=== PATIENT | male | born 1955 | race African-American/Black ===

== ENCOUNTER 2016-06-30 10:19 | Inpatient (IN) | payer BC ==
--- NOTE | ~2016-06-30 | OR ---
Unit #: [id number] #: [id number] Patient: NALLELY العلي [id number] [address] [place], [place] [address] [id number] I MR#: [id number] NAME: NALLELY العلي ROOM: 575 Date of Procedure: 07/02/2016 Admission Date: 06/30/2016 Surgeon: Isaias Masterson M.D. : 1955 Attending Physician: Nayeli Zelaya M.D. Primary Care Physician: Maggie Hernandes M.D. OPERATIVE REPORT PRIMARY CARE PHYSICIAN Maggie Hernandes M.D. PREOPERATIVE DIAGNOSES Upper gastrointestinal bleed. The patient has been presented with nausea, vomiting, and hematemesis along with diabetic ketoacidosis. PROCEDURES PERFORMED Upper gastrointestinal endoscopy. POSTOPERATIVE DIAGNOSES 1. Severe confluent ulcerative esophagitis involving almost the entire length of the esophagus along with stigmata of recent bleed. This was in the form of purplish bleb in the mid esophagus. Extensive ulceration clearly explain the patient's symptomatology of dysphagia and dyspepsia. 2. Rest of examination up to third part of duodenum was normal. RECOMMENDATIONS Pantoprazole 40 mg p.o. b.i.d. The patient must stay on b.i.d. dosing of PPI therapy on a lifelong basis. SEDATION USED MAC. DESCRIPTION OF PROCEDURE Following detailed explanation of potential risks and complications of an upper endoscopy, namely perforation, bleeding, and complications related to sedation, the patient was brought to GI lab and laid in the left lateral decubitus position. Lubricated tip of the Olympus video upper endoscope was passed through bite block into the proximal esophagus under direct vision. The entire esophageal mucosa was examined and appeared severely ulcerated with confluent ulceration extending from the mid to distal esophagus. In fact, there were satellite ulcers even in the proximal esophagus as far proximally as posterior pharynx. There was also purplish bleb in the mid esophagus indicating stigmata of recent bleed. The scope was then advanced into the gastric cavity and latter was insufflated. Mucosa of the fundus, body, and antrum was examined and appeared unremarkable. Pylorus was intubated with visualization of the normal duodenal bulb and second and third part of the duodenum. Upon withdrawal and retroflexion, incisura, cardia, and greater curve examined Unit #: [id number] #: [id number] Patient: NALLELY العلي and no additional findings noted. The scope was then withdrawn in the distal esophagus. The entire esophageal mucosa was examined all the way up to pharynx. No additional findings noted. The patient tolerated the procedure without any postprocedure complications. Dictated by... Julieta Valenzuela/tyrell TD: 07/03/2016 05:41 JOB #: [id number] OPERATIVE REPORT X Isaias Masterson MD X PROCEDURE OPERATIVE NOTE
--- NOTE | ~2016-06-30 | CO ---
Unit #: [id number] #: [id number] Patient: NALLELY العلي [id number] [id number] [facility]. [place], [place] [address] [id number] I MR#: [id number] NAME: NALLELY العلي ROOM: 575 Age: 61 Sex: M Admission Date: 06/30/2016 : 1955 Attending Physician: Nayeli Zelaya M.D. Primary Care Physician: Maggie Hernandes M.D. Consultation Date: 07/01/2016 CONSULTATION REPORT REASON FOR CONSULTATION Elevated troponin. HISTORY OF PRESENT ILLNESS The patient is a 51-year-old male who is known to Dr. Álvarez with a history of diabetes, hypertension, hyperlipidemia, questionable history of heart attack per patient. The patient presented to the [facility] emergency department on 06/30/2016 with complaints of weakness, nausea, vomiting, diarrhea times 2 weeks. The patient states that approximately two weeks ago he went to his primary care physician and got a flu shot as well as a couple of injections, one in the knee, and he has just not felt well since then. The patient states that he has had fevers, but did not check his temperature, nausea, vomiting, diarrhea, decreased appetite, weakness, chest pain, shortness of breath with exertion and at rest, as well as palpitations, but denies any kind of syncope. The patient states that he had a cardiac catheterization approximately two to three years ago, but he did not have to have any stents placed. He also states that he had a stress test two years ago, but was told it was normal. Last echo in 2011 showed impaired relaxation, normal systolic function with a mild concentric LVH. The patient presented to the emergency department with a blood pressure of 145/72, pulse 113, temperature 97.4, respiratory rate 23. The patient was given 2 liters of saline boluses as well as some morphine and Zofran. He was started on diabetic ketoacidosis protocol as his blood sugar was noted to be 674 on admission. PAST MEDICAL HISTORY 1. Diabetes. 2. Hypertension. 3. Hyperlipidemia. 4. Questionable myocardial infarction. PAST SURGICAL HISTORY 1. 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 2. Multiple foot surgeries. 3. Shoulder surgery. SOCIAL HISTORY The patient is a smoker of 1 pack per day times 20 years. No alcohol abuse. No other drug abuse. He states he is not very active as he is unable to walk very well with his foot. Unit #: [id number] #: [id number] Patient: NALLELY العلي FAMILY HISTORY Dad had a stent with myocardial infarction in his 50s. Mom lived to be in her 80s with no heart history. Sister has had sickle cell, but no coronary disease that he is aware of. ALLERGIES No known drug allergies. HOME MEDICATIONS 1. Crestor. 2. Lisinopril. 3. Lantus. 4. Multivitamins. 5. [place] 10/325 mg. There are no other doses listed and medication reconciliation is not completed at this time. REVIEW OF SYSTEMS See history of present illness. PHYSICAL EXAMINATION GENERAL: This is a 51-year-old male who is alert and oriented times three, in no apparent distress. VITALS: Blood pressure 158/80, temperature 97.6, pulse 97, respiratory rate 18. HEENT: Pupils are equal, round and reactive. Oral mucosa moist. NECK: No jugular venous distension. No thyromegaly. No lymphadenopathy. No carotid bruits. LUNGS: Clear. HEART: S1 and S2. No clicks, rubs or murmurs. ABDOMEN: Soft. Bowel sounds positive. Nontender and nondistended. EXTREMITIES: No swelling. DIAGNOSTIC STUDIES IMAGING: Chest x-ray was clear for any kind of pulmonary edema or pneumonia. LABORATORY: White blood cell count 17.1, hemoglobin 11.9, hematocrit 36.3, platelets 384, sodium 144, potassium 3.4, chloride 109, CO2 26, BUN 27, creatinine 1.6, glucose 132, magnesium 2.1, troponin less than 0.05 then 0.07 then 5.39. Urine was positive for glucose. (1) 4.4. Urine drug screen was negative. CARDIOVASCULAR: EKG showed sinus rhythm with PVCs. ASSESSMENT 1. Diabetic ketoacidosis. 2. Acute inferior wall myocardial infarction. 3. Questionable GI bleed with hemoglobin drop of 2 g after 2 liters normal saline bolus. 4. Hypertension. 5. Hyperlipidemia. 6. Diabetes. 7. Coronary artery disease that was nonobstructive per patient. No report is available. Unit #: [id number] #: [id number] Patient: NALLELY العلي PLAN Will trend troponin every 6 hours times 3 sets. Will check lipid panel, A1c and TSH on today's labs. Will obtain records from [facility] regarding cardiac catheterization, echo, stress test from Dr. Álvarez. Will obtain two-dimensional echo today to evaluate left ventricular function and valvular abnormalities. Will put hold parameters on metoprolol. Will start the patient on nitroglycerin paste q.[address] Nolasco with renal to see the patient for acute kidney injury. Clear the patient for heart catheterization. Will plan for a cardiac catheterization tomorrow as the patient has ruled in for myocardial infarction. The patient has been discussed with the plan of care and is agreeable to proceed. GI is seeing the patient for the drop in hemoglobin and the possible GI bleed and is planning for an EKG possibly tomorrow. At this time there is no indication to stop Lovenox or the aspirin. Will plan to continue until there is proof of bleeding issue. Dictated by... Torrie Gao APRN for Julieta Mendez TD: 07/02/2016 08:17 JOB #: [id number] CONSULTATION REPORT X X CONSULTATION REPORT
--- NOTE | ~2016-06-30 | CO ---
Unit #: [id number] #: [id number] Patient: NALLELY GONZALEZ [id number] [address] [address] [id number] I MR#: [id number] NAME: NALLELY GONZALEZ. ROOM: 575 Age: 61 Sex: M Admission Date: 06/30/2016 : 1955 Attending Physician: Nayeli Zelaya M.D. Primary Care Physician: Maggie Hernandes M.D. Consultation Date: 07/02/2016 CONSULTATION REPORT REASON FOR CONSULTATION Upper GI hemorrhage. HISTORY Mr. Gonzalez is a 61-year-old -[place] gentleman who was admitted with diabetic ketoacidosis. Upon admission, found to have diabetic ketoacidosis and acute HI. The patient has mentioned a history of abdominal pain for the past week in the upper abdomen, felt as a burning pain. He also has a history of terminologist acid reflux as well as dysphagia. Initially, he had vomited several times and subsequently had bright red blood and melena. In the emergency room, he was found to have diabetic ketoacidosis with a blood glucose of 660 and a bicarb of 12. His pH was 7.17. The patient was started on insulin infusion in the emergency room. Subsequently, his hemoglobin has dropped and patient complains of dysphagia and odynophagia. PAST MEDICAL HISTORY Significant history of: 1. Diabetes with peripheral neuropathy. 2. Hypertension. 3. Hyperlipidemia. 4. History of left ventricular hypertrophy. PAST SURGICAL HISTORY Previous surgeries included multiple foot surgeries including toe amputations for diabetic peripheral arterial disease. MEDICATIONS His medications at home include: 1. Crestor. 2. NovoLog. 3. Lisinopril. 4. Lantus insulin. 5. Multivitamins. 6. [place]. ALLERGIES He has no known drug allergies. FAMILY HISTORY Significant for diabetes. No family history of colon or pancreatic cancer or liver disease. SOCIAL HISTORY Unit #: [id number] #: [id number] Patient: NALLELY GONZALEZ Smokes half pack of cigarettes, does not drink alcohol. Currently unemployed. Lives at home with his . REVIEW OF SYSTEMS A detailed review of organ systems is significant for abdominal pain, nausea and vomiting as mentioned above as well as history of hematemesis and melena. There is no history of recent weight loss. No history of fevers, chills, rigors, diagnosis of headaches, seizures, chest pain or syncope. No history of cough, expectoration or hemoptysis. No history of dysuria, hematuria or pyuria. No history of focal seizures or extremity weakness. The rest of the review of organs systems is unremarkable. PHYSICAL EXAMINATION GENERAL APPEARANCE: He is awake, alert and oriented and appears comfortable. VITAL SIGNS: His vital signs are stable with a temperature of 97.9, pulse 95 per minute and regular, respiratory rate 18, blood pressure 124/82. He weighs 250 pounds and his BMI is 32. He has mild pallor, there being no icterus, lymphadenopathy or peripheral edema. CARDIOVASCULAR EXAMINATION: Normal heart sounds. No murmurs. LUNGS: Auscultation over the lungs reveal normal breath sounds. Good air entry. ABDOMEN: Soft, obese, nontender. Liver and spleen are not palpable. Bowel sounds normal. DIAGNOSTIC STUDIES LABORATORY: Lab evaluation shows a hemoglobin of 10.5. Baseline hemoglobin is around 13. His white count was 16,000 on admission and is now 9.7. Platelet count is normal. Serum chemistry shows a BUN and creatinine of 28 and 1.7. Blood glucose is 660 on admission with a CO2 of 12. These values are more or less normalized now. Albumin is 3.0. LFTs are normal. Amylase and lipase also normal. The patient's troponin is 5.91 and his (1) MB is 10 and is suspected that he has been having non-ST elevation HI and patient is due to go for heart catheterization later today. CLINICAL IMPRESSION 1. The patient does have significant heartburn and reflux symptoms along with odynophagia of quite some time. This could be due to Geno esophagitis, esophageal stricture from reflux and less likely from malignancy. In addition, patient had an upper GI bleed with anemia of acute GI blood loss. An upper endoscopy will be performed shortly in a few hours. 2. Diabetes, peripheral neuropathy, peripheral arterial disease and elevated troponin with possible acute non-ST elevation myocardial infarction: The patient clearly is a high risk because of confounding variables. However, the risk of endoscopy is primarily related to sedation and will be super careful with the latter. Thank you for asking me to see this pleasant gentleman. I appreciate the consult. Unit #: [id number] #: [id number] Patient: NALLELY GONZALEZ Dictated by... Julieta Valenzuela TD: 07/03/2016 13:14 JOB #: [id number] CONSULTATION REPORT X Isaias Masterson MD CONSULTATION REPORT
--- NOTE | ~2016-06-30 | CR72 ---
[facility] A Service of [facility] RADIOLOGY TEXT RESULTS PATIENT: NALLELY العلي LOCATION: [facility] [id number] : [birth year] UNIT #: [id number] AGE: [address]: aJcinta Hanna MD SEX: M ORDER DR: [id number] [facility] [address] [facility]. [place], [place] [address] [id number] E MR#: [id number] Acc #: [id number] NAME: NALLELY العلي : 1955 SEX: M STUDY DATE/TIME: 06/30/2016 12:25 UNIT: [facility] ROOM: STUDY DESCRIPTION: CR Chest Single View Portable Attending Physician: Giulia Westfall M.D. Ordering Physician: Giulia Westfall M.D. Primary Care Physician: Maggie Hernandes M.D. MEDICAL IMAGING REPORT This report is preliminary unless electronic signature is present EXAM Portable chest 06/30/2017 COMPARISON 04/07/2012 HISTORY SUPPLIED Diabetic ketoacidosis, weakness, nausea, vomiting, shortness of breath, and chest pain for 1 week. FINDINGS An AP portable view is obtained. The cardiovascular configuration is normal and the lungs are clear. CONCLUSION Negative portable chest. Dictated by... Mik Lopez M.D. THIS IS AN ELECTRONICALLY VERIFIED REPORT Mik Loepz M.D. at 06/30/2016 5:06 PM BASHIR/pau TD: 06/30/2016 14:51 JOB #: [id number] MEDICAL IMAGING REPORT COPY
--- NOTE | ~2016-06-30 | CT4 ---
[facility] A Service [facility] RADIOLOGY TEXT RESULTS PATIENT: NALLELY العلي LOCATION: [facility] : 53 UNIT #: [id number] AGE: [address]: Jacinta Hanna MD SEX: M ORDER DR: [id number] [address] [address] [id number] E MR#: [id number] Acc #: [id number] NAME: NALLELY العلي. : 1955 SEX: M STUDY DATE/TIME: 06/30/2016 11:52 UNIT: [facility] ROOM: STUDY DESCRIPTION: CT Abd and Pelv Wo Cont Attending Physician: Giulia Westfall M.D. Ordering Physician: Rob Dutton M.D. Primary Care Physician: Maggie Hernandes M.D. MEDICAL IMAGING REPORT This report is preliminary unless electronic signature is present EXAM CT abdomen and pelvis without contrast INDICATIONS Epigastric abdominal pain for the past week. PROCEDURE Noncontrast CT abdomen and pelvis. COMPARISON: None The CT exam was performed with one or more of the following radiation dose reduction techniques: automatic exposure control, adjustment of mA and/or kV according to patient size, and iterative reconstruction. FINDINGS Abdomen without contrast: There is mild clustered ground-glass micronodularity in the right lung base. Small hiatal hernia versus distal esophageal thickening. Liver, spleen, kidneys, adrenal glands, pancreas, gallbladder show no acute abnormality. The appendix is normal. Pelvis without contrast: No pelvic mass or fluid. No aggressive appearing bone lesion. IMPRESSION 1. Either a hiatal hernia or distal esophageal thickening not well characterized on this study. 2. Otherwise no acute findings are seen in the abdomen or pelvis. [facility] A Service [facility] RADIOLOGY TEXT RESULTS PATIENT: NALLELY العلي [facility] 53 UNIT #: [id number] AGE: [address]: Jacinta Hanna MD SEX: M ORDER DR: Dictated by... Saad Glover M.D. THIS IS AN ELECTRONICALLY VERIFIED REPORT Saad Glover M.D. at 06/30/2016 4:52 PM ELINOR/sarah TD: 06/30/2016 13:55 JOB #: [id number] MEDICAL IMAGING REPORT COPY
--- NOTE | ~2016-06-30 | DS ---
Unit #: [id number] #: [id number] Patient: NALLELY العلي [id number] [address] [address] [id number] I MR#: [id number] NAME: NALLELY العلي. ROOM: 575 Age: 61 Sex: M Admission Date: 06/30/2016 : 1955 Discharge Date: 07/03/2016 Attending Physician: Nayeli Zelaya M.D. Primary Care Physician: Maggie Hernandes M.D. DISCHARGE SUMMARY DIAGNOSIS ON ADMISSION Diabetic ketoacidosis. DIAGNOSES ON DISCHARGE 1. Diabetic ketoacidosis, resolved. 2. Acute inferior wall myocardial infarction. 3. Coronary artery disease. 4. Acute on chronic kidney disease, improved. 5. Hypertension. 6. Uncontrolled type 2 diabetes mellitus. 7. Tobacco abuse. 8. Hyperlipidemia. 9. Peripheral neuropathy. 10. Low gastrointestinal bleeding, secondary to severe ulcerative esophagitis. CONSULTATIONS 1. Dr. Isaias Masterson in GI consultation. 2. Dr. Ocampo in renal consultation. 3. Dr. Bernstein in endocrinology consultation. 4. Dr. Dumont and in cardiology consultation. PROCEDURE The patient had an EGD done which revealed severe ulcerative esophagitis involving almost the entire length of esophagus. DIAGNOSTIC STUDIES LABORATORY: Patient's creatinine is 1, sodium 137, potassium 3.8. AST and ALT are within normal limits. WBC is 8.6, hemoglobin 9.7, platelet count 206,000. Blood cultures did not reveal any growth so far. Hemoglobin A1c was 10.4. Influenza A and B screen was negative. Urine tox screen was negative. IMAGING: CT scan of abdomen and pelvis revealed either hiatal hernia or distal esophageal thickening, not well characterized on this study. HOSPITAL COURSE A 61-year-old male was admitted to [facility] with DKA. Details are as per admission H and P. Diabetic ketoacidosis: The patient was treated with IV insulin and was kept in ICU on DKA protocol. Patient responded well and diabetic ketoacidosis resolved. The patient's diabetes is uncontrolled secondary to noncompliance. He was seen by Dr. Bernstein in consultation. Unit #: [id number] #: [id number] Patient: NALLELY العلي Acute on chronic kidney disease: The patient was seen by Dr. Ocampo in consultation and his creatinine is better now. Acute inferior wall CT: The patient was seen by cardiology in consultation. Patient had a 2D echocardiogram done which revealed ejection fraction of 50% to 55%. There was mild tricuspid regurgitation present. The patient had a coronary angiogram done which revealed that patient has 60% to 70% blockage in multiple arteries. Medical treatment with risk factor reduction was recommended. Low GI bleeding: The patient was seen by Dr. Masterson in consultation and had EGD done which revealed ulcerative esophagitis. The patient does not have any recurrence of bleeding since then. Today patient is comfortable, is not in any acute distress, is anxious to go home. PHYSICAL EXAMINATION VITAL SIGNS: Reveal temperature of 98.5, pulse is 84 per minute, respiratory rate is 18 per minute, blood pressure is 118/59. HEENT: Revealed no conjunctival congestion. Sclerae is nonicteric. NECK: Supple. Trachea is central. RESPIRATORY: Revealed breath sounds equal bilaterally. No wheezes or crackles. HEART: Regular rate and rhythm. S1, S2. ABDOMEN: Soft, nontender. Bowel sounds are present. PSYCHIATRIC: The patient is alert to person, place, and time. NEUROLOGIC: Strength is 5/5 bilaterally. SKIN: Warm and dry. RECOMMENDATIONS ON DISCHARGE Condition stable. Activity as tolerated. MEDICATIONS 1. Lopressor 25 mg p.o. b.i.d. 2. Lipitor 80 mg nightly. 3. Lantus 25 units subcutaneous b.i.d. 4. Albuterol MDI two puffs q.6 hours p.r.n. 5. Tylenol 650 mg p.o. q.4 hours p.r.n. 6. Flonase two puffs inhalation daily p.r.n. 7. Spiriva one inhalation daily. 8. Neurontin 600 mg p.o. b.i.d. 9. NovoLog 5 units subcutaneous t.i.d. with meals. 10. Enteric coated aspirin 81 mg p.o. daily. 11. Imdur 60 mg p.o. daily. 12. Nitroglycerin sublingual as needed for chest pain. 13. Protonix 40 mg p.o. b.i.d. FOLLOWUP The patient is advised to follow up with primary care physician in one week and have a CBC and BMP done. The patient is advised to follow up with cardiology, renal, and GI as recommended. The patient is advised to call primary care physician or go to ER if his condition changes. Unit #: [id number] #: [id number] Patient: NALLELY العلي Dictated by... Julieta Michaud TD: 07/03/2016 10:16 JOB #: [id number] CC: Julieta Adam M.D. DISCHARGE SUMMARY X Nayeli Zelaya MD X DISCHARGE SUMMARY
--- NOTE | ~2016-06-30 | CO ---
Unit #: [id number] #: [id number] Patient: NALLELY GONZALEZ [id number] [address] [address] [id number] MR#: [id number] NAME: NALLELY GONZALEZ ROOM: 575 Age: 61 Sex: M Admission Date: 06/30/2016 : 1955 Attending Physician: Nayeli Zelaya M.D. Primary Care Physician: Maggie Hernandes M.D. CONSULTATION REPORT HISTORY OF PRESENT ILLNESS Mr. Gonzalez is a 61-year-old black male with a history of diabetes, hypertension, hyperlipidemia, and chronic kidney disease, who presents with DKA. He had been ill for the last couple of weeks. He had received a steroid shot in his knee and since that time had not felt well. He had been weak. He had had trouble with nausea, vomiting, and chest tightness. He had stopped taking his insulin about a week ago and was not eating. Upon arrival in the emergency room, his glucose was 660, bicarbonate was 12, and he had an anion gap of 27. CT scan of the abdomen and pelvis showed nothing acute. Arterial blood gases revealed a pH of 7.17, PCO2 of 23, and PO2 of 47 on room air. Chest x-ray showed no acute infiltrates. Creatinine was 1.7. Previous baseline was 1.2 in 2015. His potassium was 5.5. Initial troponin was 0.7 and followup was 5.39. No BNP was done. White count was 16,800 and hematocrit was 43.9. Followup hematocrit was 36.3 following hydration and fluids. Influenza screen was negative. Chem toxicology was negative. Urinalysis showed 3+ ketones, greater than 1000 glucose, and no bacteria. No culture indicated. Blood cultures have been drawn. We have been asked to see. PAST MEDICAL HISTORY 1. Diabetes. 2. Hypertension. 3. Diabetic neuropathy. 4. Chronic kidney disease, sees Dr. Nolasco. 5. History of fifth toe fracture with open wound. 6. Hyperlipidemia. 7. History of diastolic dysfunction on echocardiogram. 8. History of esophagitis and duodenitis. 9. History of cecal angiodysplasia, status post coagulation. PAST SURGICAL HISTORY Foot surgery including toe amputation. ALLERGIES No known allergies. HOME MEDICATIONS Crestor, NovoLog, lisinopril, Lantus, multivitamin, and [place] I believe. He is not very compliant with his diabetic diet and medications. FAMILY HISTORY Diabetes. SOCIAL HISTORY Unit #: [id number] #: [id number] Patient: NALLELY GONZALEZ He lives with his . He smokes a half a pack of cigarettes a day. He denies alcohol. He is currently unemployed. Code status is Full Code. REVIEW OF SYSTEMS A 10-point review of systems is otherwise negative. PHYSICAL EXAMINATION GENERAL: A black male in no distress. VITAL SIGNS: Blood pressure is 106/53, pulse 99, respiratory rate 18, and temperature 97.4. Weight 263. BMI 32. HEENT: Normocephalic and atraumatic. Pupils equal, round, and reactive. Sclerae are nonicteric. Nasal passages patent. Posterior pharynx clear. Mucous membranes moist. Mallampati III-IV. NECK: Thick and supple. Trachea midline. No cervical or supraclavicular lymphadenopathy. LUNGS: Clear to auscultation and percussion. CARDIAC: Regular rate and rhythm. I could not appreciate a murmur, rub, or gallop. ABDOMEN: Nontender. Bowel sounds present. No hepatosplenomegaly. EXTREMITIES: With 2+ edema of the knees with some stasis changes. NEUROLOGIC: Awake, alert, oriented x3. Cranial nerves grossly intact. Muscle strength is symmetric. Affect calm. SKIN: Warm and dry. DIAGNOSTIC STUDIES LABORATORY: Arterial blood gases as previously noted. BMP reviewed. Coags normal. IMAGING: Chest x-ray personally reviewed. IMPRESSION 1. Diabetic ketoacidosis, currently resolved, blood sugars in the 130s. 2. Diabetes mellitus. 3. Acute myocardial infarction with elevated troponin. 4. Chronic kidney disease and acute kidney injury. 5. Hypertension. 6. Hyperlipidemia. 7. Leukocytosis likely secondary to myocardial infarction. 8. History of snoring, restless sleep, and excessive daytime sleepiness, likely obstructive sleep apnea. 9. History of esophagitis and duodenitis. 10. History of cecal angiodysplasia. PLAN Can resume diet as tolerated and begin diabetic medications. Cardiology to see for acute [place]. Discontinue lisinopril. Will likely have Dr. Nolasco see for acute kidney injury. Will need outpatient evaluation of obstructive sleep apnea. Would also appliance counselor on smoking cessation. Provide DVT prophylaxis. Other recommendations pending this. Dictated by... Julieta Forrest/eliza TD: 07/01/2016 16:36 JOB #: [id number] Unit #: [id number] #: [id number] Patient: NALLELY GONZALEZ CONSULTATION REPORT X Pan Cheatham MD X CONSULTATION REPORT
--- NOTE | ~2016-06-30 | CO ---
Unit #: [id number] #: [id number] Patient: NALLELY GONZALEZ [id number] [address] [place], [place] [address] [id number] MR#: [id number] NAME: NALLELY GONZALEZ ROOM: 575 Age: 61 Sex: M Admission Date: 06/30/2016 : 1955 Attending Physician: Nayeli Zelaya M.D. Primary Care Physician: Maggie Hernandes M.D. Consultation Date: 07/01/2016 CONSULTATION REPORT REASON FOR CONSULT Renal insufficiency. HISTORY Thank you very much for asking us to see this patient again. Mr. Nallely Gonzalez is a 61-year-old male who is followed by Dr. Kishore Nolasco in our group. His last office visit was on 06/10/16 where he has, again, chronic kidney disease stage 3. The patient was noted to have a creatinine of 1.34 on 11/06/15. The patient presented to the hospital with a week of abdominal pain, some vomiting several times, occasional loose stools (questionable dark), weakness, chills. Quit taking his insulin because he was just feeling weak and tired and not eating. Was noted to have a glucose up to 660 when he came in. He subsequently still remains in the ER, although he has been there for about 24 hours. He has had some mildly increased troponin and possible AK and potential heart catheterization several days from now. He was started on an insulin drip, as well as IV fluids and remains on this at this time. He is alert. He denies any chest pain or shortness of breath currently. He denies any nausea or vomiting currently. PAST MEDICAL HISTORY He has a history of diabetes mellitus. He has a history of hypertension. He has a history of chronic kidney disease stage 3, history of hyperlipidemia, history of peripheral vascular disease status post toe amputation. He has a history of esophagitis and apparently also a history of cecal angiodysplasia, history of proteinuria, history of anemia, history of BPH. FAMILY HISTORY Positive for CVA, sickle cell trait, diabetes mellitus and hypertension. SOCIAL HISTORY Positive smoker. . No alcohol. He is unemployed currently. HOME MEDICATIONS His medicines at home include lisinopril 10 mg a day, Lasix 20 mg a day, insulin, gabapentin 300 mg t.i.d., atorvastatin 40 mg a day. ALLERGIES No known drug allergies. REVIEW OF SYSTEMS As mentioned in the HPI. He denies any fevers, occasional chills. No visual problems, sinus problems. No cough or hemoptysis. No neck pain, Unit #: [id number] #: [id number] Patient: NALLELY GONZALEZ neck stiffness. He denies any significant chest pain. No significant shortness of breath currently. He denies any urinary symptoms - starting, stopping or burning. He denies any skin rashes or any significant swelling. PHYSICAL EXAMINATION GENERAL: He is alert. VITAL SIGNS: Temperature is 97.4, pulse 85 to 121, blood pressure 99 to 163/50s to 80s. HEENT: Normocephalic, atraumatic. Pupils are equal, round and reactive to light. Extraocular muscles are intact. Hearing appears to be normal. Mouth is clear, no erythema, no exudate. NECK: Supple. No JVD. No adenopathy. CARDIAC: He is tachycardic without a rub. No S3 or S4. LUNGS: His lungs sound fairly clear bilaterally. No wheezes, rhonchi or rales. ABDOMEN: Bowel sounds are positive. Nontender, soft. No masses felt. No hepatomegaly or organomegaly noted. EXTREMITIES: He has some trace lower extremity swelling, some chronic skin changes in his lower legs. NEUROLOGIC: Appears to be intact motor and sensory grossly. : Deferred. DIAGNOSTIC STUDIES LABORATORY DATA: He has a sodium of 144, potassium 3.4, chloride 109, bicarb 26, BUN 27, creatinine down to 1.6, glucose 132 now, down from 660 at the highest. He had serum ketones that are positive, phosphorous 3.5, magnesium 2.1, albumin 3.2, CPK only 219, lactic acid 4.4 initially. Hemoglobin was 11.9, white count 17,100, platelets 284,000. His influenza was negative. His drug screen was negative. His creatinine, again, as noted in November of last year. His UA here shows specific gravity of 1.027, greater than 1,000 glucose, positive ketones. No significant proteinuria or hematuria. IMAGING: His chest x-ray was negative. CT of his abdomen and pelvis showed some esophageal thickness. ASSESSMENT AND PLAN 1. Acute on chronic kidney disease stage 3. The patient's renal function is improving. Hopefully, in a couple more days his renal function will be back to his baseline with IV fluids. Certainly I assume he is partially volume depleted due to his DKA, osmotic diuresis, as well as creatinine, etc., from his DKA and hopefully again it will continue to improve. Will continue his IV fluids for now. Will check labs in the morning and will continue to follow. Will not do any major workup at this time unless his renal function worsens. Will check labs in the morning, and depending on what all these show, depending on what medicine changes. Certainly, if his creatinine is better tomorrow or the next day, heart cath is okay from the renal standpoint. I did discuss the risks of the dye with the patient. He understands. 2. Hypertension. Blood pressure is kind of up and down. Will follow his blood pressure. Would hold his lisinopril the day of heart catheterization, as well as hold the diuretic. Will follow trends. 3. Diabetes mellitus with hyperglycemia, DKA. 4. Possible acute AK. Unit #: [id number] #: [id number] Patient: NALLELY GONZALEZ Thank you very much. Dictated by..Yohan Ocampo M.D. RIA/ankush TD: 07/02/2016 09:58 JOB #: [id number] CONSULTATION REPORT X Danny Ocampo MD X CONSULTATION REPORT
--- NOTE | ~2016-06-30 | HP ---
Unit #: [id number] #: [id number] Patient: NALLELY العلي [id number] [address] [address] [id number] I MR#: [id number] NAME: NALLELY العلي. ROOM: 02058 Age: 61 Sex: M Admission Date: 06/30/2016 : 1955 Attending Physician: Jacinta Hanna M.D. Primary Care Physician: Maggie Hernandes M.D. HISTORY AND PHYSICAL CHIEF COMPLAINT Weakness, nausea, vomiting. HISTORY OF PRESENT ILLNESS The patient is a 61-year-old male with past medical history of diabetes, hypertension and hyperlipidemia, who presented to the emergency department for evaluation of the above. The patient states that he has had abdominal pain for the past week. He states that it is in his upper abdomen. He describes it as "burning." It has been fairly intermittent in nature. There are no exacerbating or alleviating factors. He reports more than 10 bouts of nonbloody emesis. He states that it was somewhat dark. He had loose stool a couple of days ago. His last bowel movement was on the . He states that it was dark as well. He states that he has been feeling increasingly generally weak. He denies any fever. He has had a nonproductive cough. He stopped taking his insulin about a week ago due to not eating. Upon arrival in the emergency department the patient's glucose was 660 on his comprehensive metabolic panel with a bicarbonate of 12, anion gap of 27. CT of the abdomen and pelvis was done and showed nothing acute. Arterial blood gas showed pH of 7.172. He was started on an insulin drip. He is being admitted to [facility] for evaluation and further treatment. PAST MEDICAL HISTORY 1. Admission to [facility] June 30-2013, for fifth toe fracture with open wound. 2. Diabetes with peripheral neuropathy. 3. Hypertension. 4. Hyperlipidemia. 5. Echocardiogram April 07, 2012 showed a Doppler flow pattern suggestive of impaired left ventricular relaxation with normal systolic function. Mild concentric left ventricular hypertrophy was also noted. PAST SURGICAL HISTORY Multiple foot surgeries including toe amputation. SOCIAL HISTORY The patient lives with his . He smokes a half pack of cigarettes daily. He denies alcohol use. He is unemployed. His code status is a Full Code. Unit #: [id number] #: [id number] Patient: NALLELY العلي FAMILY HISTORY Family history is notable for diabetes. ALLERGIES No known allergies. HOME MEDICATIONS Home medications include Crestor, NovoLog, lisinopril, Lantus, multivitamin, [place]. Home medications will need to be reviewed and verified. REVIEW OF SYSTEMS A 10-point review of systems is negative except as indicated in the HPI. DIAGNOSTIC STUDIES CARDIOVASCULAR: EKG shows sinus tachycardia with a rate of 111 beats per minute. IMAGING: Chest x-ray shows no acute abnormality. CT of the abdomen and pelvis showed no acute findings. LABORATORY: Urinalysis notable for greater than 1000 glucose, 3+ ketones. Lactic acid is 4.4. Comprehensive metabolic panel notable for potassium of 5.5, chloride is 97, bicarb is 12, anion gap is 27, glucose 660, BUN and creatinine 28 and 1.7 respectively, alkaline phosphatase 137, total bilirubin 2.1, amylase and lipase are 9 and 21 respectively. Complete blood count notable for white blood cell count of 16.8. Troponin is less than 0.05. Magnesium is 2.3. Beta hydroxybutyrate 11.36. Arterial blood gas shows a pH of 7.172, pCO2 of 23.3, pO2 of 47.9. PHYSICAL EXAMINATION VITAL SIGNS: Temperature is 97.4. Pulse 113. Respirations 23. Blood pressure 145/72. GENERAL: The patient is an -Somali male who is awake. HEENT: The head is atraumatic. Mucous membranes are dry. NECK: Neck is supple. Trachea is midline. CARDIOVASCULAR: Tachycardic in the 1-teens. LUNGS: Lungs are relatively clear to auscultation bilaterally with no increased work of breathing. ABDOMEN: Abdomen is soft. He is tender to palpation in the epigastric area. Bowel sounds are present in all four quadrants. EXTREMITIES: Show 2 to 3+ pitting edema. NEUROLOGIC: The patient is oriented x3. He follows commands. PSYCHIATRIC: Mood and affect are normal. The patient is cooperative. SKIN: Skin of examined areas is warm and dry. ASSESSMENT The patient is a 61-year-old male with: 1. Diabetic ketoacidosis. The patient has not been taking his insulin for the past week. The patient received 2 L of normal saline in the emergency department. He is currently on insulin drip. 2. Anion gap metabolic acidosis with an anion gap of 27. 3. Acute kidney injury. The patient's creatinine is 1.7 today. It was 1.2 on January 17, 2015. It has been as high as 3 on April 07, 2012. 4. Leukocytosis. There is no obvious source of infection. Urinalysis Unit #: [id number] #: [id number] Patient: NALLELY العلي is negative. Chest x-ray is negative. 5. Abdominal pain with negative CT of the abdomen and pelvis. 6. Bilateral lower extremity edema. 7. Hypertension. 8. Hyperlipidemia. 9. Tobacco abuse. PLAN 1. Admit to ICU. 2. N.p.o. except ice chips. 3. DKA protocol with insulin drip. 4. Blood cultures x2 for further evaluation of leukocytosis. 5. Consult Dr. Ybarra regarding ICU admission. 6. Serial cardiac enzymes. 7. Two-D echo for further evaluation of lower extremity edema. 8. P.r.n. Tylenol. 9. Urine tox screen on urine in the lab. 10. P.r.n. Zofran. 11. Neuro checks. 12. PT/OT to evaluate and treat. 13. Fall precautions. 14. Hemoccult stool. 15. Gastroccult emesis. 16. Repeat labs in the morning including magnesium. 17. Protonix for GI prophylaxis. 18. SCDs for DVT prophylaxis. 19. Additional workup and consultants based on above. Thirty-three minutes critical care time spent in the care of this patient (1:50 to 2:23 p.m.). Dictated by Jacinta Hanna M.D. SHAINA/gita TD: 06/30/2016 15:40 JOB #: [id number] HISTORY AND PHYSICAL X Jacinta Hanna MD X HISTORY AND PHYSICAL
--- NOTE | ~2016-06-30 | EKG ---
PATIENT: NALLELY العلي UNIT #: [id number] Ventricular Rate: 102 BPM Atrial Rate: 102 BPM P-R Interval: 136 ms QRS Duration: 86 ms Q-T Interval: 368 ms QTC Calculation(Bezet): 479 ms P [place]: 71 degrees Calculated R [place]: 47 degrees Calculated T [place]: 71 degrees Diagnosis Line: Sinus tachycardia with occasional Premature Diagnosis Line: ventricular complexes Diagnosis Line: Possible Inferior infarct , age undetermined Diagnosis Line: Nonspecific ST and T wave abnormality Diagnosis Line: Abnormal ECG Diagnosis Line: When compared with ECG of 30-JUN-2016 09:56, Diagnosis Line: (unconfirmed) Diagnosis Line: Premature ventricular complexes are now Present Diagnosis Line: Nonspecific T wave abnormality now evident in Diagnosis Line: Anterolateral leads Diagnosis Line: Confirmed by RADHA MARTINEZ MD ([id number]) on Diagnosis Line: 07/01/2016 12:00:27 PM INTERPRETING MD: TRISTIN
--- NOTE | ~2016-06-30 | EKG ---
PATIENT: NALLELY العلي UNIT #: [id number] Ventricular Rate: 99 BPM Atrial Rate: 99 BPM P-R Interval: 132 ms QRS Duration: 74 ms Q-T Interval: 350 ms QTC Calculation(Bezet): 449 ms P [place]: 49 degrees Calculated R [place]: 50 degrees Calculated T [place]: 74 degrees Diagnosis Line: Sinus rhythm with occasional Premature ventricular Diagnosis Line: complexes Diagnosis Line: Nonspecific T wave abnormality Diagnosis Line: Abnormal ECG Diagnosis Line: When compared with ECG of 30-JUN-2016 23:49, Diagnosis Line: (unconfirmed) Diagnosis Line: Nonspecific T wave abnormality, worse in Inferior Diagnosis Line: leads Diagnosis Line: Confirmed by RADHA MARTINEZ MD ([id number]) on Diagnosis Line: 07/01/2016 12:13:09 PM INTERPRETING MD: TRISTIN
--- NOTE | ~2016-06-30 | EKG ---
PATIENT: NALLELY العلي UNIT #: [id number] Ventricular Rate: 111 BPM Atrial Rate: 111 BPM P-R Interval: 136 ms QRS Duration: 94 ms Q-T Interval: 364 ms QTC Calculation(Bezet): 495 ms P [place]: 76 degrees Calculated R [place]: 79 degrees Calculated T [place]: 36 degrees Diagnosis Line: Sinus tachycardia Diagnosis Line: Otherwise normal ECG Diagnosis Line: When compared with ECG of 11-DEC-2014 13:33, Diagnosis Line: No significant change was found Diagnosis Line: Confirmed by RADHA MARTINEZ MD ([id number]) on Diagnosis Line: 07/01/2016 11:46:45 AM INTERPRETING : TRISTIN
--- NOTE | ~2016-06-30 | EKG ---
PATIENT: NALLELY العلي UNIT #: [id number] Ventricular Rate: 106 BPM Atrial Rate: 106 BPM P-R Interval: 138 ms QRS Duration: 80 ms Q-T Interval: 346 ms QTC Calculation(Bezet): 459 ms P [place]: 62 degrees Calculated R [place]: 56 degrees Calculated T [place]: 64 degrees Diagnosis Line: Sinus tachycardia Diagnosis Line: Otherwise normal ECG Diagnosis Line: When compared with ECG of 01-JUL-2016 10:15, Diagnosis Line: Premature ventricular complexes are no longer Diagnosis Line: Present Diagnosis Line: Confirmed by GAMA FALLON MD ([id number]) on 07/02/2016 Diagnosis Line: 7:38:01 PM INTERPRETING MD: LEEANNE FREEMAN
[~2016-06-30 10:19] MED LIST: APAP500 MG PO; ASPIRIN325 M1 PO; COREG PO; CRESTOR40 MG PO; DEXILANT60 MG PO; FAMOTIDINE PO; HUMALOG PUMP; IMDUR-ER30 M1 PO; IRON1 TAB PO; KEFLEX500 M1 PO; KEFZOL2 GM IV; LANTUS SOLOSTAR3 ML SUBQ; LANTUS100 U/ML SQ; LANTUS100 UNITS/; LEVAQUIN PO; LISINOPRIL10 MG PO; LISINOPRIL20 MG PO; LISINOPRIL5 MG PO; LOPRESSOR PO; METOPROLOL SUCC25 MG PO; MIRALAX17 GM PO; MULTI VITAMIN1 EACH PO; NEXIUM PO; NORCO 10-325 TA1 TAB PO; NOVOLOG100 U/M1 SQ; NOVOLOG100 U/M2 SUBQ; NOVOLOG100 U/ML; PERCOCET 5-3251 TAB PO; PERCOCET PO; PERCOCET5/325 PO; SENNA PO; T:SLIM1 EAC1; VANCOMYCIN2 GM/250 M IV; VITAMIN C500 M1 PO; ZESTORETIC 20/11 TAB PO
[2016-06-30 10:24] LABS: URINE SOURCE CLEAN CATCH
[2016-06-30 10:30] LABS: BASOPHIL% 0.2 % (0-2.5); HEMATOCRIT 43.9 % (38.0-50.0); HEMOGLOBIN 13.8 gm/dL (13.0-16.0); LYMPHOCYTE# 1.2 X10e3 (1.0-3.5); LYMPHOCYTE% 7.2 % (17.0-45.0); MEAN CELL VOLUME 96.7 FL (83-96); MEAN CORPUSCULAR HEMOGLOBIN 30.4 PG (28-34); MEAN CORPUSCULAR HGB CONC 31.4 g/dL (30-36); MEAN PLATELET VOLUME 8.7 FL (6.5-11.5); MONOCYTE# 1.1 X10e3 (0-1.0); MONOCYTE% 6.5 % (3.0-12.0); NEUTROPHIL# 14.4 X10e3 (1.5-7.1); NEUTROPHIL% 86.1 % (40-75); PLATELET COUNT 382 X10e3 (140-420); RED BLOOD COUNT 4.54 X10e (3.90-5.60); RED CELL DISTRIBUTION WIDTH 15.6 % (11.0-15.5); WHITE BLOOD COUNT 16.8 X10e3 (4.0-10.5)
[2016-06-30 10:31] LABS: URINE APPEARANCE CLEAR; URINE BILIRUBIN NEG (NEG); URINE BLOOD NEG (NEG); URINE COLOR YELLOW; URINE GLUCOSE >1000 MG/DL (NEG); URINE KETONE 3+ (NEG); URINE LEUKOCYTE ESTERASE NEG (NEG); URINE NITRATE NEG (NEG); URINE PROTEIN NEG (NEG); URINE SPECIFIC GRAVITY 1.027 (1.003-1.035); URINE UROBILINOGEN 0.2 MG/DL (NEG)
[2016-06-30 10:31] LABS: DIFF IND YES
[2016-06-30 10:52] LABS: CULTURE INDICATED? NO
[2016-06-30 10:54] LABS: ALBUMIN SERUM 3.5 g/dL (3.5-5.0); BILIRUBIN, DIRECT 0.1 mg/dL (0.0-0.2); BILIRUBIN,TOTAL 2.1 mg/dL (0.2-2.0); BUN/CREATININE RATIO 16.47; CALCIUM SERUM 8.8 mg/dL (8.4-10.2); CREATININE SERUM 1.7 mg/dL (0.6-1.4); GLOM FILT RATE Estimated 52.8 mL/min (>60); PROTEIN TOTAL SERUM 7.6 g/dL (6.0-8.3)
[2016-06-30 10:57] LABS: POTASSIUM 5.5 mmol/L (3.5-5.1)
[2016-06-30 11:03] LABS: ANISOCYTOSIS SL; PLATELET ESTIMATE NORMAL (NORMAL)
[2016-06-30 11:40] LABS: POC - CKMB 3.9 ng/mL (0.0-7.9); POC - TROPONIN <0.05 ng/mL (<=0.05)
[2016-06-30 12:21] LABS: ARTERIAL BLD GAS O2 SATURATION 68.6 % (90.0-100.0); ARTERIAL BLOOD GAS CARBOXY HB 0.7 %sat (0.0-9.0); ARTERIAL BLOOD GAS HCO3 8.5 mmol/L; ARTERIAL BLOOD GAS PCO2 23.2 mmHg (35.0-45.0)
[2016-06-30 12:36] LABS: ARTERIAL BLOOD GAS ALLEN TEST NORMAL; ARTERIAL BLOOD GAS ART SITE LEFT RADIAL; ARTERIAL BLOOD GAS PO2 47.9 mmHg (80.0-100); ARTERIAL BLOOD GAS pH 7.172 (7.350-7.450); ARTERIAL DRAW? YES
[2016-06-30 14:05] LABS: INFLUENZA A NEG (NEG)
[2016-06-30 14:06] LABS: INFLUENZA B NEG (NEG)
[2016-06-30 15:46] LABS: AMPHETAMINE NEG (NEG); BARBITURATES NEG (NEG); BENZODIAZEPINES NEG (NEG); COCAINE NEG (NEG); MARIJUANA NEG (NEG); OPIATES NEG (NEG); TRICYCLIC ANTIDEPRESSANTS NEG (NEG); U METHADONE NEG (NEG)
[2016-06-30 16:48] LABS: %MB 9.7 % (0.0-4.0); MB 7.6 ng/ml
[2016-06-30 23:33] LABS: BUN/CREATININE RATIO 15.71; CALCIUM SERUM 8.4 mg/dL (8.4-10.2); CREATININE SERUM 2.1 mg/dL (0.6-1.4); GLOM FILT RATE Estimated 41.4 mL/min (>60); PHOSPHOROUS 3.5 mg/dL (2.5-4.6)
[2016-06-30 23:51] LABS: %MB 10.1 % (0.0-4.0); MB 22.2 ng/ml
[2016-07-01 04:18] LABS: HEMATOCRIT 36.3 % (38.0-50.0); HEMOGLOBIN 11.9 gm/dL (13.0-16.0); MEAN CELL VOLUME 92.7 FL (83-96); MEAN CORPUSCULAR HEMOGLOBIN 30.3 PG (28-34); RED BLOOD COUNT 3.91 X10e (3.90-5.60); WHITE BLOOD COUNT 17.1 X10e3 (4.0-10.5)
[2016-07-01 04:19] LABS: MEAN CORPUSCULAR HGB CONC 32.7 g/dL (30-36); MEAN PLATELET VOLUME 8.1 FL (6.5-11.5); RED CELL DISTRIBUTION WIDTH 15.1 % (11.0-15.5)
[2016-07-01 05:14] LABS: ALBUMIN SERUM 3.2 g/dL (3.5-5.0); ALKALINE PHOSPHATASE 120 U/L (32-92); ALT (SGPT) 15 U/L (10-40); AST (SGOT) 26 U/L (10-42); BILIRUBIN,TOTAL 1.3 mg/dL (0.2-2.0); BLOOD UREA NITROGEN 30 mg/dL (9-23); CALCIUM SERUM 8.4 mg/dL (8.4-10.2); CARBON DIOXIDE 19 mmol/L (22-31); CHLORIDE 111 mmol/L (100-111); CREATININE SERUM 1.5 mg/dL (0.6-1.4); GLOM FILT RATE Estimated ABOVE60 mL/min (>60); GLUCOSE FASTING 182 mg/dL (70-110); MAGNESIUM 2.1 mg/dL (1.6-3.0); POTASSIUM 4.4 mmol/L (3.5-5.1); PROTEIN TOTAL SERUM 6.6 g/dL (6.0-8.3); SODIUM 143 mmol/L (135-145)
[2016-07-01 08:31] LABS: BUN/CREATININE RATIO 16.87; CALCIUM SERUM 8.6 mg/dL (8.4-10.2); CREATININE SERUM 1.6 mg/dL (0.6-1.4); GLOM FILT RATE Estimated 56.6 mL/min (>60); POTASSIUM 3.4 mmol/L (3.5-5.1)
[2016-07-01] MEDS ORDERED: FLUNISOLIDE25 ML (12:04)
[2016-07-01 12:57] LABS: CHOLESTEROL 148 mg/dL (0-200); HDL CHOLESTEROL 51 mg/dL (29-75); LDL CHOLESTEROL 75 mg/dL ([, -130]); LDL/HDL RATIO 1 RATIO (0-4); TRIGLYCERIDES 110 mg/dL (10-160)
[2016-07-01] MEDS ORDERED: AMITRIPTYLINE H25 MG PO (12:59)
[2016-07-01] MEDS ORDERED: ALLEGRA ALLERG180 MG PO (12:59)
[2016-07-01] MEDS ORDERED: LIPITOR40 MG PO (12:59)
[2016-07-01] MEDS ORDERED: GABAPENTIN600 MG PO (13:00)
[2016-07-01] MEDS ORDERED: SPIRIVA18 MCG (13:01)
[2016-07-01] MEDS ORDERED: ALBUTEROL17 GM INH (13:01)
[2016-07-01] MEDS ORDERED: CIALIS PO (13:02)
[2016-07-01] MEDS ORDERED: LASIX20 MG PO (13:02)
[2016-07-01] MEDS ORDERED: NOVOLOG FL100 UNIT/1 SUBQ (13:04)
[2016-07-01] MEDS ORDERED: LANTUS SOLOSTAR3 ML SUBQ (13:04)
[2016-07-01 15:17] LABS: HEMATOCRIT 35.7 % (38.0-50.0); HEMOGLOBIN 11.5 gm/dL (13.0-16.0); MEAN CORPUSCULAR HEMOGLOBIN 30.2 PG (28-34); MEAN CORPUSCULAR HGB CONC 32.1 g/dL (30-36); MEAN PLATELET VOLUME 7.9 FL (6.5-11.5); RED BLOOD COUNT 3.8 X10e (3.90-5.60); RED CELL DISTRIBUTION WIDTH 15.4 % (11.0-15.5)
[2016-07-01 22:06] LABS: HEMATOCRIT 34.3 % (38.0-50.0); HEMOGLOBIN 10.9 gm/dL (13.0-16.0)
[2016-07-02 04:20] LABS: HEMATOCRIT 35.8 % (38.0-50.0); HEMOGLOBIN 11.5 gm/dL (13.0-16.0); MEAN CELL VOLUME 93.2 FL (83-96); MEAN CORPUSCULAR HEMOGLOBIN 29.8 PG (28-34); MEAN PLATELET VOLUME 7.4 FL (6.5-11.5); RED BLOOD COUNT 3.85 X10e (3.90-5.60); RED CELL DISTRIBUTION WIDTH 15.1 % (11.0-15.5); WHITE BLOOD COUNT 11.3 X10e3 (4.0-10.5)
[2016-07-02 04:40] LABS: PARTIAL THROMBOPLASTIN TIME 30.2 SECONDS (23.5-31.3); PROTHROMBIN TIME (PATIENT) 10.8 SECONDS (9.6-11.5)
[2016-07-02 04:51] LABS: ALKALINE PHOSPHATASE 111 U/L (32-92); ALT (SGPT) 17 U/L (10-40); AST (SGOT) 25 U/L (10-42); BILIRUBIN,TOTAL 0.6 mg/dL (0.2-2.0); BLOOD UREA NITROGEN 21 mg/dL (9-23); BUN/CREATININE RATIO 16.15; CALCIUM SERUM 8.8 mg/dL (8.4-10.2); CARBON DIOXIDE 25 mmol/L (22-31); CHLORIDE 108 mmol/L (100-111); CREATININE SERUM 1.3 mg/dL (0.6-1.4); GLOM FILT RATE Estimated ABOVE60 mL/min (>60); GLUCOSE FASTING 252 mg/dL (70-110); MAGNESIUM 2.2 mg/dL (1.6-3.0); PHOSPHOROUS 2.6 mg/dL (2.5-4.6); POTASSIUM 3.9 mmol/L (3.5-5.1); PROTEIN TOTAL SERUM 6.4 g/dL (6.0-8.3); SODIUM 142 mmol/L (135-145); URIC ACID 7.7 mg/dL (2.6-7.2)
[2016-07-02 11:15] LABS: HEMATOCRIT 33.7 % (38.0-50.0); HEMOGLOBIN 10.8 gm/dL (13.0-16.0); MEAN CELL VOLUME 92.7 FL (83-96); MEAN CORPUSCULAR HEMOGLOBIN 29.9 PG (28-34); MEAN CORPUSCULAR HGB CONC 32.2 g/dL (30-36); MEAN PLATELET VOLUME 7.2 FL (6.5-11.5); RED BLOOD COUNT 3.63 X10e (3.90-5.60); RED CELL DISTRIBUTION WIDTH 15.2 % (11.0-15.5)
[2016-07-02 16:12] LABS: HEMATOCRIT 32.9 % (38.0-50.0); HEMOGLOBIN 10.8 gm/dL (13.0-16.0); MEAN CELL VOLUME 92.7 FL (83-96); MEAN CORPUSCULAR HEMOGLOBIN 30.5 PG (28-34); MEAN CORPUSCULAR HGB CONC 32.9 g/dL (30-36); MEAN PLATELET VOLUME 7.5 FL (6.5-11.5); RED BLOOD COUNT 3.55 X10e (3.90-5.60); RED CELL DISTRIBUTION WIDTH 15.3 % (11.0-15.5); WHITE BLOOD COUNT 11.6 X10e3 (4.0-10.5)
[2016-07-02 22:45] LABS: HEMATOCRIT 32.5 % (38.0-50.0); HEMOGLOBIN 10.5 gm/dL (13.0-16.0); MEAN CELL VOLUME 93.1 FL (83-96); MEAN CORPUSCULAR HGB CONC 32.2 g/dL (30-36); MEAN PLATELET VOLUME 7.6 FL (6.5-11.5); RED BLOOD COUNT 3.49 X10e (3.90-5.60); RED CELL DISTRIBUTION WIDTH 15.3 % (11.0-15.5); WHITE BLOOD COUNT 9.7 X10e3 (4.0-10.5)
[2016-07-03 04:21] LABS: HEMATOCRIT 29.1 % (38.0-50.0); HEMOGLOBIN 9.7 gm/dL (13.0-16.0); MEAN CELL VOLUME 92.6 FL (83-96); MEAN CORPUSCULAR HEMOGLOBIN 30.7 PG (28-34); MEAN CORPUSCULAR HGB CONC 33.2 g/dL (30-36); MEAN PLATELET VOLUME 7.7 FL (6.5-11.5); RED BLOOD COUNT 3.15 X10e (3.90-5.60); RED CELL DISTRIBUTION WIDTH 15.2 % (11.0-15.5); WHITE BLOOD COUNT 8.6 X10e3 (4.0-10.5)
[2016-07-03 04:52] LABS: BLOOD UREA NITROGEN 12 mg/dL (9-23); CALCIUM SERUM 7.5 mg/dL (8.4-10.2); CARBON DIOXIDE 24 mmol/L (22-31); CHLORIDE 111 mmol/L (100-111); GLOM FILT RATE Estimated ABOVE60 mL/min (>60); GLUCOSE FASTING 291 mg/dL (70-110); MAGNESIUM 1.9 mg/dL (1.6-3.0); PHOSPHOROUS 3.1 mg/dL (2.5-4.6); POTASSIUM 3.8 mmol/L (3.5-5.1); SODIUM 137 mmol/L (135-145)
[2016-07-03] MEDS ORDERED: ACETAMINOPHEN PO (11:18)
[2016-07-03] MEDS ORDERED: ASPIRIN81 M2 PO (11:19)
[2016-07-03] MEDS ORDERED: PROTONIX PO (11:20)
[2016-07-03] MEDS ORDERED: IMDUR PO (11:20)
[2016-07-03] MEDS ORDERED: LOPRESSOR PO (11:22)
[2016-07-03] MEDS ORDERED: NOVOLOG100 U/ML SUBQ (13:30)
[2016-07-03] MEDS ORDERED: IMDUR-ER60 M1 PO (13:36)
== END 2016-07-03 14:30 | disposition home or self-care (01) | DRG 280 ==
LOC: CED 10:19 → CEDOF 14:20 → C5C 07-01 15:28
PROVIDERS: Emergency Medicine; Family Medicine; Internal Medicine Cardiovascular Disease; Internal Medicine Gastroenterology; Internal Medicine Nephrology; Nurse Practitioner
PROC: B24BYZZ Ultrasonography of Heart with Aorta using Other Contrast (ICD-10-PCS; 2016-07-01)
PROC: B211YZZ Fluoroscopy of Multiple Coronary Arteries using Other Contrast (ICD-10-PCS; 2016-07-02)
PROC: B215YZZ Fluoroscopy of Left Heart using Other Contrast (ICD-10-PCS; 2016-07-02)
PROC: 4A023N7 Measurement of Cardiac Sampling and Pressure, Left Heart, Percutaneous Approach (ICD-10-PCS; principal; 2016-07-02 12:33)
PROC: 0DJ08ZZ Inspection of Upper Intestinal Tract, Via Natural or Artificial Opening Endoscopic (ICD-10-PCS; 2016-07-03)
DX: I21.4 Non-ST elevation (NSTEMI) myocardial infarction (principal); E10.10 Type 1 diabetes mellitus with ketoacidosis without coma; K22.11 Ulcer of esophagus with bleeding; N17.9 Acute kidney failure, unspecified; N18.3 Chronic kidney disease, stage 3 (moderate); E10.22 Type 1 diabetes mellitus with diabetic chronic kidney disease; E10.42 Type 1 diabetes mellitus with diabetic polyneuropathy; E78.5 Hyperlipidemia, unspecified; F17.210 Nicotine dependence, cigarettes, uncomplicated; Z79.4 Long term (current) use of insulin; Z91.14 Patient's other noncompliance with medication regimen; D72.829 Elevated white blood cell count, unspecified; R60.0 Localized edema; Z89.421 Acquired absence of other right toe(s); I25.10 Atherosclerotic heart disease of native coronary artery without angina pectoris; I12.9 Hypertensive chronic kidney disease with stage 1 through stage 4 chronic kidney disease, or unspecified chronic kidney disease; R13.10 Dysphagia, unspecified
CPT/HCPCS: 36600; 71010; 74176; 80048; 80053; 80061; 80076; 80307; 81003; 82010; 82150; 82550; 82553; 82803; 82947; 83036; 83605; 83690; 83735; 84100; 84443; 84484; 84550; 85014; 85018; 85025; 85027; 85610; 85730; 87040; 87804; 93005; 93306; 94640; 94664; 94760; 96361; 96374; 96375; 97163; 99291; C1769; C1887; C1894; C9113; J1644; J1650; J1815; J2250; J2270; J2405; J2543; J2765; J3010

== ENCOUNTER → 2016-12-17 | Outpatient (CLI) | payer BC ==
[~2016-12-17] MED LIST changes: +ACETAMINOPHEN PO; +ALBUTEROL17 GM INH; +ALLEGRA ALLERG180 MG PO; +AMITRIPTYLINE H25 MG PO; +ASPIRIN81 M2 PO; +CIALIS PO; +FLUNISOLIDE25 ML; +GABAPENTIN600 MG PO; +IMDUR PO; +IMDUR-ER60 M1 PO; +LASIX20 MG PO; +LIPITOR40 MG PO; +NOVOLOG FL100 UNIT/1 SUBQ; +NOVOLOG100 U/ML SUBQ; +PROTONIX PO; +SPIRIVA18 MCG
--- NOTE | ~2016-12-17 | US89 ---
[facility] A Service of [facility] RADIOLOGY TEXT RESULTS PATIENT: NALLELY العلي LOCATION: [facility] : 53 UNIT #: [id number] AGE: [address]: KASH GERMAIN MD SEX: M ORDER DR: [id number] [facility] [address] [place], [place] [address] [id number] MR#: [id number] Acc #: [id number] NAME: NALLELY العلي : 1955 SEX: M STUDY DATE/TIME: 12/17/2016 14:44 UNIT: [facility] ROOM: STUDY DESCRIPTION: US Lower Ext Arterial Exam Attending Physician: Kash Germain M.D. Referring Physician: Kash Germain M.D. Ordering Physician: Physician Non-Staff Primary Care Physician: Maggie Hernandes M.D. MEDICAL IMAGING REPORT This report is preliminary unless electronic signature is present EXAM Left lower extremity ankle-brachial index. HISTORY Right lower extremity digits partial amputation foot, left lower extremity wound several weeks. Ulcer ankle. FINDINGS Left lower extremity ankle-brachial indices performed. The study is somewhat limited in the absence of right lower extremity assessment for comparative purposes. All pressure measurements are in millimeters of mercury. The right brachial pressure 169, left brachial pressure 172. Distal left lower extremity pressures as follows: Posterior tibial at ankle 167, dorsalis pedis at ankle 190, great toe 89. Ankle-brachial index 1.10. Toe-brachial index 0.52. Pulse volume recordings essentially biphasic at the left ankle and left great toe. Relatively low amplitude at the left great toe. IMPRESSION 1. The left ankle-brachial index of 1.10 is normal. There appears to be adequate perfusion of the left lower extremity through the level of the ankle at rest. 2. There is a relatively pronounced pressure gradient between the left ankle and the left great toe with a toe-brachial index of 0.52. This suggests at least moderate and potentially severe small vessel disease in the left foot distal to the level of the ankle. Correlate clinically. 3. If it would assist in patient management, lower extremity arterial anatomy could be further evaluated with CT angiography if the patient is a candidate for iodinated contrast material. Dictated by... [facility] A Service of [facility] RADIOLOGY TEXT RESULTS PATIENT: NALLELY العلي LOCATION: [facility] : 53 UNIT #: [id number] AGE: [address]: KASH GERMAIN MD SEX: M ORDER DR: Mik Bacon M.D. THIS IS AN ELECTRONICALLY VERIFIED REPORT Mik Bacon M.D. at 12/24/2016 6:14 PM Desmond TD: 12/17/2016 22:38 JOB #: [id number] MEDICAL IMAGING REPORT Page 1 of 1 COPY
== END | disposition home or self-care (01) ==
LOC: CNIV 12-16 11:00
DX: L97.322 Non-pressure chronic ulcer of left ankle with fat layer exposed (principal)
CPT/HCPCS: 93922; 93923